=== PATIENT | female | born 1960 | race Caucasian/White ===

== ENCOUNTER 2017-07-22 17:17 | Observation (INO) ==
[2017-07-22] MEDS ORDERED: Acetaminophen 325 MG TABLET PO PRN (22:02)
[2017-07-22] MEDS ORDERED: Naloxone 0.4 MG/ML INJ IVP PRN (22:02)
[2017-07-22 22:56] LABS: Basophils % 0.5 %; Eosinophils # 0.2 K/mcL (0.0-0.6); Eosinophils % 2.1 %; Hematocrit 32.7 % (35.3-44.9); Immature Granulocytes % 0.3 % (0-4); Lymphocytes # 2.1 K/mcL (0.6-4.6); Lymphocytes % 23.9 %; Mean Corpuscular HGB Conc 30.6 g/dL (31.6-35.5); Mean Corpuscular Volume 81.8 fL (83.0-100.0); Mean Platelet Volume 10.9 fL (9.4-12.4); Monocytes # 0.6 K/mcL (0.0-1.3); Monocytes % 6.8 %; Neutrophils # 5.9 K/mcL (1.6-8.9); Platelet Count 190 K/mcL (140-400); Red Cell Distribution Width 18.6 % (11.5-14.5); Segmented Neutrophils % 66.4 %
[2017-07-22] MEDS ORDERED: Vancomycin 2,000 MG in D5% in Water 250 ML IVPB SCH (23:00)
[2017-07-22 23:11] LABS: Alanine Aminotransferase 14 Units/L (7-52); Albumin 3.4 g/dL (3.5-5.7); Alkaline Phosphatase 115 Units/L (34-104); Aspartate Amino Transferase 20 Units/L (13-39); BUN/Creatinine Ratio 17 (6-26); Bilirubin,Total 0.5 mg/dL (0.3-1.0); Blood Urea Nitrogen 18 mg/dL (6-20); Calcium 8.6 mg/dL (8.6-10.3); Carbon Dioxide 28 mEq/L (23-29); Chloride 102 mEq/L (98-107); Globulin 3.4 g/dL (2.4-3.5); Glucose 106 mg/dL (70-105); Osmolality,Calculated 290 (280-300); Potassium 3.8 mEq/L (3.5-5.1); Sodium 139 mEq/L (136-145); Total Protein 6.8 g/dL (6.4-8.9); eGFR For African Americans > 60 (> 60); eGFR For Non-African Americans 54 (> 60)
[2017-07-22 23:39] LABS: INR 2.3; Prothrombin Time 24.7 Seconds (9.4-12.1)
[2017-07-23] MEDS ORDERED: Vancomycin 1,750 MG in D5% in Water 500 ML IVPB ONE (00:01)
--- NOTE | 2017-07-23 01:31 | Internal Med History&Physical ---
Date of Encounter: 07/23/17 Time of Encounter: 01:30 Assessment and Plan (1) Fall Current visit: Yes Status: Acute Possibly syncope. Weakness may be related to cellulitis. - Treat for cellulitis and see if weakness improves - CT negative for intracranial abnormalities - Consider TTE if symptoms persist - Monitor on telemetry Qualifiers: Encounter type: initial encounter Qualified Code(s): W19.XXXA - Unspecified fall, initial encounter (2) Cellulitis Current visit: No Status: Chronic Located on pannus - was receiving vancomycin but this was reportedly discontinued when she pulled out her PICC line several days ago. Will restart vancomycin, pharmacy to dose. Qualifiers: Site of cellulitis: extremity Site of cellulitis of extremity: lower extremity Laterality: unspecified laterality Qualified Code(s): L03.119 - Cellulitis of unspecified part of limb (3) Venous stasis dermatitis Current visit: No Status: Acute Chronic. Qualifiers: Laterality: bilateral Qualified Code(s): I87.2 - Venous insufficiency ( chronic) (peripheral) (4) CHF (congestive heart failure) Current visit: No Status: Chronic Currently appears euvolemic. Continue home meds Qualifiers: Congestive heart failure type: unspecified Congestive heart failure chronicity: unspecified Qualified Code(s): I50.9 - Heart failure, unspecified (5) History of coronary artery disease Current visit: No Status: Acute Patient complains of atypical chest pain which sounds more consistent with musculoskeletal pain from coughing. Will check troponins. (6) History of obstructive sleep apnea Current visit: No Status: Chronic Continue home BIPAP Internal Medicine - H&P: HPI Chief complaint: Fall, cellulitis Admitted From: Emergency Dept Plans for Post Hospital Care: Home History of present illness: Ms. Evans is a 57 year old female with history of CAD and s/p CABG and AVR, CVA, seizure disorder, morbid obesity, diabetes, and TRUNG who presented to the ED today after she had a fall at her alf. She states that she has had trouble standing for the past week and has been very weak. She fell today and thinks she might have passed out. She thinks she lost consciousness. She states that she has been treated for cellulitis on her pannus and was supposed to be taking vancomycin IV but she self removed her PICC line on 07/19/2017. I asked why she removed it and she stated that she knew how. She does not think she was done with the course of antibiotics she was supposed to take. She has noticed that the right side of her pannus has become more red, warm and tender over the past few days. She does not know if she has had a fever. She has had a cough and chest pain associated with coughing. She denies chest pain currently. Past Med Surg Social Fam HX - Past Medical History Medical history: asthma, CHF, COPD, CVA, DVT, hyperlipidemia, myocardial infarction, seizures, TIA Psychiatric history: anxiety, depression, PTSD, other - Past Surgical History Surgical History: , other - Social History Smoking Status: Never smoker Smokeless Tobacco Status: No Alcohol use: none Drug use: none - Family History Father Living Status: Still Living Mother Living Status: Cause of : Cancer Hx Family Cancer: Yes Internal Medicine - H&P: Meds Quetiapine Fumarate [Seroquel] 450 mg PO HS 02/16/15 [History] Zolpidem [Ambien] 5 mg PO HS 02/16/15 [History] Atorvastatin Calcium [Lipitor] 20 mg PO DAILY 06/10/15 [History] Budesonide/Formoterol 160/4.5 [Symbicort 160/4.5] 2 aerosol IN BID 06/10/15 [ History] Carvedilol [Coreg] 3.125 mg PO BIDWM 06/10/15 [History] Cholecalciferol (Vitamin D3) [Vitamin D3] 5,000 unit PO DAILY 06/10/15 [History] Clopidogrel [Plavix] 75 mg PO DAILY 06/10/15 [History] Cyanocobalamin (B-12) [Vitamin B12] 0 mcg IM QMONTH 06/10/15 [History] Daptomycin [Cubicin] 1,038 mg IVPB Q24H 06/10/15 [History] Diclofenac Sodium [Voltaren] 1 appl TP QID 06/10/15 [History] Duloxetine HCl [Cymbalta] 60 mg PO BID 06/10/15 [History] Ertapenem [INVanz] 2,000 mg IVPB DAILY 06/10/15 [History] Ipratropium/Albuterol Neb [Duoneb] 3 ml IH Q8HR 06/10/15 [History] LevETIRAcetam [Keppra] 500 mg PO BID 06/10/15 [History] Melatonin 3 mg PO HS 06/10/15 [History] Sennosides [Senna] 8.8 mg PO BID 06/10/15 [History] Trazodone HCl [TraZODone] 50 mg PO 06/10/15 [History] Docusate [Colace] 100 mg PO BID capsule 08/17/15 [Rx] OxyCODONE/APAP 10/325 [Percocet 10/325 MG] 1 each PO Q8HR PRN #20 tablet [Rx] Ascorbate Calcium [Vitamin C] 500 mg PO DAILY 07/22/17 [History] Baclofen [Lioresal] 10 mg PO TID 07/22/17 [History] Ferrous Sulfate 325 mg PO DAILY 07/22/17 [History] Furosemide [Lasix] 60 mg PO DAILY 07/22/17 [History] Multivit-Min/FA/Lycopen/Lutein [Adults 50+ Multivitamin Tablet] 1 each PO DAILY 07/22/17 [History] Omeprazole [PriLOSEC] 20 mg PO DAILY 07/22/17 [History] Pentoxifylline [TRENtal] 400 mg PO BID 07/22/17 [History] OXcarbazepine [Trileptal] 300 mg PO BID 07/23/17 [History] Venlafaxine HCl [Venlafaxine HCl ER] 75 mg PO BID 07/23/17 [History] 3 Allergy/AdvReac Type Severity Reaction Status Date / Time aspirin Allergy Unknown See Verified 01/31/15 06:22 Comments diazepam [From Valium] Allergy Unknown See Verified 01/31/15 06:22 Comments divalproex sodium Allergy Unknown See Verified 01/31/15 06:22 [From Depakote] Comments prochlorperazine Allergy Unknown See Verified 01/31/15 06:22 [From Compazine] Comments All Systems PM: A 10-system review of systems was performed and is negative for pertinent findings except as documented above in the HPI. - Constitutional Vitals: Temp Pulse Resp BP Pulse Ox 98.8 F 101 17 108/69 93 07/22/17 23:08 07/22/17 23:08 07/22/17 23:08 07/22/17 23:08 07/22/17 23:08 General appearance: Present: A&O X 3 - Head Head exam: Present: atraumatic - Eye Eye exam: Present: EOMI, sclera anicteric - ENT ENT exam: Present: mucous membranes moist - Neck Neck exam general surgery: Present: supple - Respiratory Respiratory exam: Present: CTAB - Cardiovascular Cardiovascular exam: Present: RRR. Absent: diastolic murmur, systolic murmur - GI/Abdominal GI/Abdominal exam: Present: soft. Absent: guarding, rebound Additional comments: Right anterior pannus with mild erythema and tenderness to palpation. - Extremities Exam Additional comments: Bilateral changes secondary to chronic venous stasis. Numerous superficial ulcerations. - Neurological Exam Neurological exam: Present: no focal deficits - Skin Skin exam: Absent: cyanosis Internal Med - H&P Results - Labs CBC & Chem 7: 07/22/17 22:48 07/22/17 22:48 Labs: Short CBC 07/22/17 Range/Units 22:48 WBC 8.9 (4.3-11.1) K/mcL Hgb 10.0 L (11.5-15.4) g/dL Hct 32.7 L (35.3-44.9) % Plt Count 190 (140-400) K/mcL Neutrophils # 5.9 (1.6-8.9) K/mcL BMP 07/22/17 22:48 Sodium 139 Potassium 3.8 Chloride 102 Carbon Dioxide 28 BUN 18 Creatinine 1.04 Glucose 106 H Calcium 8.6 Cardiac Enzymes 07/22/17 Range/Units 22:48 Troponin I < 0.03 (< 0.04) ng/mL Liver Function 07/22/17 Range/Units 22:48 Total Bilirubin 0.5 (0.3-1.0) mg/dL AST 20 (13-39) Units/L ALT 14 (7-52) Units/L Alkaline Phosphatase 115 H (34-104) Units/L Albumin 3.4 L (3.5-5.7) g/dL
[2017-07-23] MEDS ORDERED: Dextromethorphan Polistrx(12h) 30 MG/5 ML UDC PO PRN ×2 (05:00→05:15)
[2017-07-23] MEDS ORDERED: *HR* HYDROcodone/Acet 5/325 mg TABLET PO PRN ×2 (05:00)
[2017-07-23] MEDS ORDERED: GuaiFENesin Liq 200 MG/10 ML UDC PO PRN (05:00)
[2017-07-23] MEDS ORDERED: Ipratropium/Albuterol Neb 3 ML IH PRN (05:00)
[2017-07-23] MEDS: Venlafaxine XR (24 HR) 75 MG CAP.ER.24H PO SCH ×2 (09:26→20:55)
[2017-07-23] MEDS: Multivit/Ca/Min/Fe/FA 1 TAB TABLET PO SCH (09:27)
[2017-07-23] MEDS: Furosemide 20 MG TABLET PO SCH (09:27)
[2017-07-23] MEDS: Ascorbic Acid 500 MG TABLET PO SCH (09:28)
[2017-07-23] MEDS: levETIRAcetam 250 MG TABLET PO SCH ×2 (09:28→20:55)
[2017-07-23] MEDS: OXcarbazepine 150 MG TABLET PO SCH ×2 (09:28→20:55)
[2017-07-23] MEDS: Baclofen 10 MG TABLET PO SCH ×3 (09:28→20:55)
[2017-07-23] MEDS: Vancomycin 1,500 MG in D5% in Water 250 ML IVPB SCH ×2 (12:23→23:49)
[2017-07-23] MEDS: Insulin LISPRO 300 UNITS/3 ML VIAL SQ SCH ×3 (12:23→20:51)
--- NOTE | 2017-07-23 14:24 | Internal Med Progress Note ---
Date of Encounter: 07/23/17 Time of Encounter: 13:10 - Assessment and plan (1) CHF (congestive heart failure) Current Visit: Yes Status: Chronic Assessment and plan: Chronic. Last echo in January,. LV size and wall thickness appeared normal by history, there is a mechanical aortic valve. Hickman that were actually visualized showed normal wall motion. Echo and carotids will be ordered for syncopal workup. Continue telemetry and home medications. Qualifiers: Congestive heart failure type: unspecified Congestive heart failure chronicity: unspecified Qualified Code(s): I50.9 - Heart failure, unspecified (2) CAD (coronary artery disease) Current Visit: Yes Status: Chronic Assessment and plan: Patient denies chest pain. Prior history of CAD. Continue home medications. Continue beta fausto, Coumadin. Patient is allergic to aspirin. Qualifiers: Coronary Disease-Associated Artery/Lesion type: [place] artery [place] vs. transplanted heart: [place] heart Associated angina: angina presence unspecified Qualified Code(s): I25.10 - Atherosclerotic heart disease of [place] coronary artery without angina pectoris (3) Morbid obesity with BMI of 70 and over, adult Current Visit: Yes Status: Chronic Assessment and plan: Chronic. Lifestyle modifications are needed. (4) TRUNG (obstructive sleep apnea) Current Visit: Yes Status: Chronic Assessment and plan: Continue BiPAP. (5) Fall Current Visit: Yes Status: Acute Assessment and plan: Patient presented to the emergency room status post fall at [facility] prior to arrival. Patient reports that over the last week she has been having trouble standing and has been very weak. She fell prior to arrival thinks that she may have had a syncopal episode and lost consciousness. Patient with obvious weakness on exam, unsure if it is related to cellulitis or obesity and physical deconditioning. BMI is 70.4. She denies any chest pain prior to fall. Repeats that she is unsure what caused the fall. No obvious injuries noted on exam. Patient sent from [facility], head CT was negative. We will continue to treat pannus cellulitis with IV vancomycin to assess if this resolves weakness. PT/OT consultations. Patient is already in a half-way. Qualifiers: Encounter type: initial encounter Qualified Code(s): W19.XXXA - Unspecified fall, initial encounter (6) DVT prophylaxis Current Visit: No Status: Acute Assessment and plan: Chair twice a day. Heparin subcutaneous 3 times daily. (7) Venous stasis dermatitis Current Visit: No Status: Acute Assessment and plan: Chronic. May dress legs to prevent drainage from seeping. Qualifiers: Laterality: bilateral Qualified Code(s): I87.2 - Venous insufficiency ( chronic) (peripheral) - Time Spent With Patient less than 15 minutes - Subjective Interval history: Pt was seen and assessed at bedside at 1310. Patient seems almost unable to answer questions due to frequent questions asking for IV pain medications, specifically Phenergan, Dilaudid, and morphine. She reports pruritus to entire body and ask for IV Benadryl. I offered her hydroxyzine, which she agreed. She denies any chest pain, shortness of breath. She denies abdominal pain. She is sitting up on the side of the bed eating fried chicken and mashed potatoes. Patient reports serous fluid seeping from bilateral lower extremities , unchanged from normal at home. - Constitutional Vitals: Temp Pulse Resp BP Pulse Ox 98.5 F 80 17 95/59 99 07/23/17 13:25 07/23/17 13:25 07/23/17 13:25 07/23/17 13:25 07/23/17 13:25 General appearance: Present: cooperative, A&O X 3, morbidly obese, pleasant, no acute distress, answers questions appropriately - Head Head exam: Present: atraumatic, normal inspection, normocephalic - Eye Eye exam: Present: conjuntiva pink, sclera anicteric - Neck Neck exam general surgery: Present: supple, trachea midline. Absent: lymphadenopathy, tenderness - Respiratory Respiratory exam: Present: chest wall tenderness, CTAB. Absent: accessory muscle use, rales, rhonchi, wheezes - Cardiovascular Cardiovascular exam: Present: RRR, +S1, +S2. Absent: diastolic murmur, gallop, rubs, systolic murmur - GI/Abdominal GI/Abdominal exam: Present: normal bowel sounds, soft, no peritoneal signs. Absent: distended, hepatomegaly, tenderness - Extremities Exam Extremities exam: Present: normal capillary refill, warm, radial pulses palpable and symmetrical. Absent: calf tenderness, cyanotic, pedal edema, tenderness - Neurological Exam Neurological exam: Present: alert, oriented X3, no focal deficits. Absent: facial droop, speech deficit - Skin Skin exam: Present: dry, intact Internal Medicine: Result - Labs CBC & Chem 7: 07/22/17 22:48 07/22/17 22:48 Labs: Short CBC 07/22/17 Range/Units 22:48 WBC 8.9 (4.3-11.1) K/mcL Hgb 10.0 L (11.5-15.4) g/dL Hct 32.7 L (35.3-44.9) % Plt Count 190 (140-400) K/mcL Neutrophils # 5.9 (1.6-8.9) K/mcL BMP 07/22/17 22:48 Sodium 139 Potassium 3.8 Chloride 102 Carbon Dioxide 28 BUN 18 Creatinine 1.04 Glucose 106 H Calcium 8.6 Cardiac Enzymes 07/22/17 07/23/17 07/23/17 Range/Units 22:48 05:16 12:13 Troponin I < 0.03 < 0.03 < 0.03 (< 0.04) ng/mL Liver Function 07/22/17 Range/Units 22:48 Total Bilirubin 0.5 (0.3-1.0) mg/dL AST 20 (13-39) Units/L ALT 14 (7-52) Units/L Alkaline Phosphatase 115 H (34-104) Units/L Albumin 3.4 L (3.5-5.7) g/dL - ABG Interpretation ABG results: PT/INR, D-dimer PT 24.7 Seconds (9.4-12.1) H 07/22/17 23:17 Consult Discharge Plan - Plan Referrals: NONE,PCP [Primary Care Provider] -
[2017-07-23] MEDS: *HR* Heparin 5,000 UNIT/ML VIAL SQ SCH ×2 (15:23→21:00)
[2017-07-23] MEDS: *HR* Warfarin 4 MG TABLET PO SCH (17:59)
[2017-07-23] MEDS: Melatonin 3 MG TABLET PO SCH (20:55)
[2017-07-23] MEDS: traZODone 50 MG TABLET PO SCH (20:55)
[2017-07-24 05:08] LABS: BUN/Creatinine Ratio 16 (6-26); Basophils % 0.5 %; Blood Urea Nitrogen 16 mg/dL (6-20); Calcium 8.4 mg/dL (8.6-10.3); Carbon Dioxide 30 mEq/L (23-29); Chloride 104 mEq/L (98-107); Eosinophils # 0.2 K/mcL (0.0-0.6); Eosinophils % 2.8 %; Glucose 122 mg/dL (70-105); Hematocrit 30.5 % (35.3-44.9); Immature Granulocytes % 0.2 % (0-4); Lymphocytes # 1.6 K/mcL (0.6-4.6); Lymphocytes % 27.1 %; Mean Corpuscular HGB Conc 29.5 g/dL (31.6-35.5); Mean Corpuscular Hemoglobin 24.6 pg (28.0-33.3); Mean Corpuscular Volume 83.3 fL (83.0-100.0); Mean Platelet Volume 11.1 fL (9.4-12.4); Monocytes # 0.4 K/mcL (0.0-1.3); Monocytes % 7.3 %; Neutrophils # 3.6 K/mcL (1.6-8.9); Osmolality,Calculated 290 (280-300); Platelet Count 177 K/mcL (140-400); Potassium 3.8 mEq/L (3.5-5.1); Red Blood Count 3.66 M/mcL (3.82-4.97); Red Cell Distribution Width 18.8 % (11.5-14.5); Segmented Neutrophils % 62.1 %; Sodium 139 mEq/L (136-145); eGFR For African Americans > 60 (> 60); eGFR For Non-African Americans 57 (> 60)
[2017-07-24] MEDS: *HR* Heparin 5,000 UNIT/ML VIAL SQ SCH ×3 (05:48→21:30)
[2017-07-24] MEDS ORDERED: hydrOXYzine pamoate 25 MG CAPSULE PO PRN (07:49)
[2017-07-24] MEDS: Insulin LISPRO 300 UNITS/3 ML VIAL SQ SCH ×4 (07:53→21:26)
[2017-07-24] MEDS: Ascorbic Acid 500 MG TABLET PO SCH (09:25)
[2017-07-24] MEDS: Baclofen 10 MG TABLET PO SCH ×3 (09:25→21:26)
[2017-07-24] MEDS: Venlafaxine XR (24 HR) 75 MG CAP.ER.24H PO SCH ×2 (09:25→21:25)
[2017-07-24] MEDS: levETIRAcetam 250 MG TABLET PO SCH ×2 (09:25→21:25)
[2017-07-24] MEDS: Furosemide 20 MG TABLET PO SCH (09:25)
[2017-07-24] MEDS: OXcarbazepine 150 MG TABLET PO SCH ×2 (09:26→21:26)
[2017-07-24] MEDS: Multivit/Ca/Min/Fe/FA 1 TAB TABLET PO SCH (09:26)
[2017-07-24 09:46] LABS: % Iron Saturation 12 % (15-50); Iron 36 mcg/dL (50-170); Transferrin 219 mg/dL (203-362)
[2017-07-24] MEDS ORDERED: Perflutren Lipid Microsphere 1.3 ML in 0.9 % Sodium Chloride 8.7 ML IVP ONE (09:55)
[2017-07-24] MEDS: Vancomycin 1,500 MG in D5% in Water 250 ML IVPB SCH (12:03)
--- NOTE | 2017-07-24 15:14 | Internal Med Progress Note ---
Date of Encounter: 07/24/17 Time of Encounter: 09:15 - Assessment and plan (1) CHF (congestive heart failure) Current Visit: Yes Status: Chronic Assessment and plan: Chronic. Last echo in January,. LV size and wall thickness appeared normal by history, there is a mechanical aortic valve. Hickman that were actually visualized showed normal wall motion. Echo and carotids were ordered for syncopal workup, pt refused testing. Continue telemetry and home medications. Pt is intermittently refusing some medications and has refused telemetry. WE have encouraged her to complete testing and wear tele monitor, pt refuses. Qualifiers: Congestive heart failure type: unspecified Congestive heart failure chronicity: unspecified Qualified Code(s): I50.9 - Heart failure, unspecified (2) CAD (coronary artery disease) Current Visit: Yes Status: Chronic Assessment and plan: Patient denies chest pain. Prior history of CAD. Continue home medications. Continue beta fausto, Coumadin. Patient is allergic to aspirin. Patient has refused telemetry and a further testing. Qualifiers: Coronary Disease-Associated Artery/Lesion type: [place] artery [place] vs. transplanted heart: [place] heart Associated angina: angina presence unspecified Qualified Code(s): I25.10 - Atherosclerotic heart disease of [place] coronary artery without angina pectoris (3) Morbid obesity with BMI of 70 and over, adult Current Visit: Yes Status: Chronic Assessment and plan: Chronic. Lifestyle modifications are needed. Continue low sodium and diabetic, cardiac diet. (4) TRUNG (obstructive sleep apnea) Current Visit: Yes Status: Chronic Assessment and plan: Continue BiPAP. (5) Fall Current Visit: Yes Status: Acute Assessment and plan: PT/OT consultations. Patient is already in a [facility]. Pt requires assistance for mobility. Up to chair with assistance. Qualifiers: Encounter type: initial encounter Qualified Code(s): W19.XXXA - Unspecified fall, initial encounter (6) DVT prophylaxis Current Visit: No Status: Acute Assessment and plan: Chair twice a day. Heparin subcutaneous 3 times daily. (7) Venous stasis dermatitis Current Visit: No Status: Acute Assessment and plan: Chronic. May dress legs to prevent drainage from seeping. Wound consultation ordered. Qualifiers: Laterality: bilateral Qualified Code(s): I87.2 - Venous insufficiency ( chronic) (peripheral) - Time Spent With Patient less than 15 minutes - Subjective Interval history: Pt was seen and assessed at bedside at 0915. Patient has requested that a PICC line be inserted that I need to write a prescription for vancomycin for her to go to the [facility]. She states that she has not done here and is ready to go back to the [facility]. She is a resident at [facility] and [place]. Patient has refused all care including echocardiogram, labs, medications, and telemetry. She states her doctor can order all of this testing that she does not need to have it done. We, of course, have tried to discuss with patient necessity for complete evaluation, patient remains resistant. Patient is waiting on prior authorization from insurance to return to [facility]. She denies chest pain or shortness of breath, no dizziness or nausea vomiting diarrhea. She denies abdominal pain. - Constitutional Vitals: Temp Pulse Resp BP Pulse Ox 97.7 F 77 16 126/75 94 07/24/17 11:16 07/24/17 11:16 07/24/17 11:16 07/24/17 11:16 07/24/17 11:16 General appearance: Present: cooperative, A&O X 3, morbidly obese, pleasant, no acute distress, answers questions appropriately - Head Head exam: Present: atraumatic, normal inspection, normocephalic - Eye Eye exam: Present: normal appearance, conjuntiva pink, sclera anicteric - Neck Neck exam general surgery: Present: supple, trachea midline. Absent: lymphadenopathy, tenderness - Respiratory Respiratory exam: Present: CTAB. Absent: accessory muscle use, chest wall tenderness, rales, respiratory distress, rhonchi, wheezes - Cardiovascular Cardiovascular exam: Present: RRR, +S1, +S2. Absent: diastolic murmur, gallop, rubs, systolic murmur - GI/Abdominal GI/Abdominal exam: Present: normal bowel sounds, soft. Absent: distended, hepatomegaly, tenderness - Extremities Exam Extremities exam: Present: tenderness, warm, radial pulses palpable and symmetrical. Absent: calf tenderness, cyanotic, normal capillary refill, normal inspection, pedal edema - Neurological Exam Neurological exam: Present: alert, oriented X3, no focal deficits. Absent: facial droop, speech deficit - Skin Skin exam: Present: dry, intact, normal color, warm. Absent: rash Internal Medicine: Result - Labs CBC & Chem 7: 07/24/17 04:19 07/24/17 04:19 Labs: Short CBC 07/24/17 Range/Units 04:19 WBC 5.7 (4.3-11.1) K/mcL Hgb 9.0 L (11.5-15.4) g/dL Hct 30.5 L (35.3-44.9) % Plt Count 177 (140-400) K/mcL Neutrophils # 3.6 (1.6-8.9) K/mcL BMP 07/24/17 04:19 Sodium 139 Potassium 3.8 Chloride 104 Carbon Dioxide 30 H BUN 16 Creatinine 0.99 Glucose 122 H Calcium 8.4 L - ABG Interpretation ABG results: PT/INR, D-dimer PT 24.7 Seconds (9.4-12.1) H 07/22/17 23:17 Consult Discharge Plan - Plan Referrals: NONE,PCP [Primary Care Provider] -
[2017-07-24 16:07] LABS: Bilirubin,Urine Negative (Negative); Blood,Urine Trace (Negative); Clarity,Urine Clear (Clear); Color,Urine Yellow (Yellow); Glucose,Urine (UA) Normal (Normal); Ketones,Urine Negative (Negative); Leukocyte Esterase,Urine Negative (Negative); Nitrite,Urine Negative (Negative); PH,Urine 6.5 pH Units (5.0-8.0); Protein,Urine Negative (Neg-Trace); Specific Gravity,Urine 1.014 (1.010-1.025); Urobilinogen,Urine Normal (Normal)
[2017-07-24 16:09] LABS: Bacteria,Urine None Seen per hpf (None-Few); Hyaline Casts,Urine None Seen per lpf (None-Few); Squamous Epithelial Cell,Urine Moderate per lpf (None-Few); WBC,Urine 0-3 per hpf (0-3)
[2017-07-24] MEDS ORDERED: Warfarin perPT PO PRN (18:00)
[2017-07-24] MEDS: *HR* Warfarin 4 MG TABLET PO SCH (18:33)
[2017-07-24] MEDS: Melatonin 3 MG TABLET PO SCH (21:26)
[2017-07-24] MEDS: traZODone 50 MG TABLET PO SCH (21:26)
[2017-07-25] MEDS: Vancomycin 1,500 MG in D5% in Water 250 ML IVPB SCH (00:37)
[2017-07-25] MEDS: *HR* Heparin 5,000 UNIT/ML VIAL SQ SCH ×2 (05:08→13:53)
[2017-07-25] MEDS: Insulin LISPRO 300 UNITS/3 ML VIAL SQ SCH ×2 (09:05→11:12)
[2017-07-25] MEDS: Baclofen 10 MG TABLET PO SCH ×2 (10:03→13:53)
[2017-07-25] MEDS: Venlafaxine XR (24 HR) 75 MG CAP.ER.24H PO SCH (10:03)
[2017-07-25] MEDS: OXcarbazepine 150 MG TABLET PO SCH (10:03)
[2017-07-25] MEDS: Furosemide 20 MG TABLET PO SCH (10:03)
[2017-07-25] MEDS: Ascorbic Acid 500 MG TABLET PO SCH (10:04)
[2017-07-25] MEDS: Multivit/Ca/Min/Fe/FA 1 TAB TABLET PO SCH (10:04)
[2017-07-25] MEDS: levETIRAcetam 250 MG TABLET PO SCH (10:04)
--- NOTE | 2017-07-25 15:01 | Discharge Summary ---
Date of Encounter: 07/25/17 Time of Encounter: 15:10 - Discharge Diagnosis (1) Laceration of head Priority: Primary Status: Acute Comments: presented to OSH ER after falling at ECF. OSH head CT non-acute. Scalp laceration stapled on 07/23/17 per outside hospital ED. 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 On Coumadin. Last INR 2.3 on 07/22/17 as patient is refusing blood draws. Discussed with pharmacy and will discharge on home dose of 4 mg. INR can be monitored at ECF (3) Abdominal hernia Priority: Secondary Status: Chronic Comments: Secondary to morbid obesity. Outside hospital ABD CT showed ventral wall hernia containing a small loop of small bowel and abdominal fat, no acute bowel obstruction or ileus. Lifestyle/dietary modifications encouraged but unlikely. Defer to ECF PCP for follow-up Qualifiers: Hernia type: ventral Obstruction and gangrene presence: without obstruction or gangrene Qualified Code(s): K43.9 - Ventral hernia without obstruction or gangrene (4) Abdominal pannus Priority: Secondary Status: Chronic Comments: hx recurrent abdominal pannus cellulitis quiring IV ATB. Patient an ECF staff report recently completed a round of IV vancomycin and 06/2017. Outside hospital ABD CT without evidence of free air free fluid or loculated fluid collection in the abdomen. No local signs of infection. Afebrile, no elevated VBC. No indication for ATB at this time. 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 Recently completed a round of IV ATB for lower extremity cellulitis. Lower extremities with chronic venous changes but no signs of infection at this time. No indication for ATB. Stop IV Vanco. Continue local wound care per ECF Qualifiers: Laterality: bilateral Qualified Code(s): I87.2 - Venous insufficiency ( chronic) (peripheral) (6) CAD (coronary artery disease) Priority: Secondary Status: Chronic Comments: per hx. Denies chest pain. Continue home BB, Coumadin, statin Qualifiers: Coronary Disease-Associated Artery/Lesion type: [place] artery [place] vs. transplanted heart: [place] heart Associated angina: angina presence unspecified Qualified Code(s): I25.10 - Atherosclerotic heart disease of [place] coronary artery without angina pectoris (7) Morbid obesity with BMI of 60.0-69.9, adult Priority: Secondary Status: Chronic (8) Hx of aortic valve replacement, mechanical Priority: Secondary Status: Chronic Comments: per hx. 01/2015 with evidence of mechanical aortic valve. A repeat echocardiogram was ordered however patient refused. Last INR 2.3 on 07/22/17. Continue home Coumadin. INR can be monitored at [facility] (9) Personality disorder Priority: Secondary Status: Chronic Comments: Along with anxiety and mood disorder per chart review. Suspect this is contributing to noncompliance. Continue home medication regimen. - Discharge Medications Prescriptions: HYDROcodone/Acet 5/325 mg [[place] 5-325 mg] 1 tab PO Q6H PRN #28 tablet PRN Reason: Moderate Pain HYDROcodone/Acet 5/325 mg [[place] 5-325 mg] 2 tab PO Q6H PRN #28 tablet PRN Reason: Pain Home Medications: Atorvastatin Calcium [Lipitor] 40 mg PO HS 06/10/15 [History] Carvedilol [Coreg] 3.125 mg PO BID 06/10/15 [History] Ipratropium/Albuterol Neb [Duoneb] 2.5 mg IH Q6HR PRN 06/10/15 [History] LevETIRAcetam [Keppra] 500 mg PO BID 06/10/15 [History] Melatonin 6 mg PO HS 06/10/15 [History] Sennosides [Senna] 8.6 mg PO HS 06/10/15 [History] Trazodone HCl [TraZODone] 50 mg PO HS 06/10/15 [History] Docusate [Colace] 100 mg PO BID capsule 08/17/15 [Rx] Ascorbate Calcium [Vitamin C] 500 mg PO DAILY 07/22/17 [History] Baclofen [Lioresal] 10 mg PO TID 07/22/17 [History] Ferrous Sulfate 325 mg PO DAILY 07/22/17 [History] Furosemide [Lasix] 60 mg PO DAILY 07/22/17 [History] Multivit-Min/FA/Lycopen/Lutein [Adults 50+ Multivitamin Tablet] 1 tab PO DAILY 07/22/17 [History] Omeprazole [PriLOSEC] 20 mg PO DAILY 07/22/17 [History] Pentoxifylline [TRENtal] 400 mg PO BID 07/22/17 [History] Bisacodyl [Woman's Laxative] 5 mg PO DAILY PRN 07/23/17 [History] Cyclobenzaprine [Flexeril] 10 mg PO TID PRN 07/23/17 [History] Dextromethorphan Polistirex [Delsym] 30 mg PO Q4HR PRN 07/23/17 [History] DiphenhydraMINE [Benadryl] 25 mg PO Q6HR PRN 07/23/17 [History] Guaifenesin [Cough Syrup] 200 mg PO Q4H PRN 07/23/17 [History] Guaifenesin [Mucinex] 600 mg PO Q12HR PRN 07/23/17 [History] HYDROcodone/Acet 5/325 mg [[place] 5-325 mg] 1 tab PO Q6H PRN 07/23/17 [History] OXcarbazepine [Trileptal] 300 mg PO BID 07/23/17 [History] Ondansetron HCl [Zofran] 4 mg PO Q4H PRN 07/23/17 [History] Venlafaxine HCl [Venlafaxine HCl ER] 37.5 mg PO BID 07/23/17 [History] Warfarin [Coumadin] 4 mg PO HS 07/23/17 [History] HYDROcodone/Acet 5/325 mg [[place] 5-325 mg] 1 tab PO Q6H PRN #28 tablet 07/25/17 [Rx] HYDROcodone/Acet 5/325 mg [[place] 5-325 mg] 2 tab PO Q6H PRN #28 tablet 07/25/17 [Rx] Allergies/Adverse Reactions: 3 Allergy/AdvReac Type Severity Reaction Status Date / Time aspirin Allergy Unknown See Verified 01/31/15 06:22 Comments diazepam [From Valium] Allergy Unknown See Verified 01/31/15 06:22 Comments divalproex sodium Allergy Unknown See Verified 01/31/15 06:22 [From Depakote] Comments prochlorperazine Allergy Unknown See Verified 01/31/15 06:22 [From Compazine] Comments Date of admission: 07/22/17 18:54 Primary care physician: PCP NONE Consults: 07/23/17 14:53 Consult to Physical Therapy [CONS] Routine Comment: Evaluate, develop and implement POC Reason for Consult: Weakness. Evaluation please. 07/24/17 15:03 Consult to Occupational Therapy [CONS] Routine Comment: Evaluate, develop and implement POC Reason for Consult: Evaluate 07/24/17 15:04 Consult to Physical Therapy [CONS] Routine Comment: Evaluate, develop and implement POC Reason for Consult: Evaluate 07/24/17 15:16 Consult to Wound Care [CONS] Routine Reason for Consult: Evaluation for venous stasis dermatitis to BLE, dressings Call Completed: No 07/24/17 18:55 Consult to PICC team [Consult to Invasive Line Access Team] [CONS] Routine Reason for Consult: limited vascular access Line Type: PICC 07/25/17 14:18 Consult to Shuttle Buggy Operator [CONS] Routine Reason for SW Consult: discharge Discharging clinician: Radha Talbot Anticipated date of discharge: 07/25/17 - Patient Status Disposition: Transfer SNF Condition: Fair Functional capacity at discharge: uses cane/walker Overall status at discharge: patient is back to baseline - Discharge Instructions Follow Up With: NONE,PCP [Primary Care Provider] - Additional Instructions: Remove scalps miguelina in 7-10 days - Diet and Activity Activity: as per physical therapy Diet: diabetic diet, low fat, low cholesterol Interval History: Seen and examined at bedside, patient is 78. Information obtained from chart review and patient report. Sitting up in chair at bedside, states she is upset with staff here and was discharged back to [facility] today. Patient reports being tired the day she was transferred to outside hospital and thus the reason for her fall. Says she was receiving IV vancomycin for lower extremity cellulitis however her PICC line apparently became clogged and the physician at [facility] did not want to use TPA therefore the patient removed the pick herself. She has been noncompliant with care while here at [facility], has been argumentative and combative with staff. She is refusing medication, lab draws and, telemetry, echo and refusing to work with therapy. Patient states she feels better and wants to discharge back to ECF today. She was coronary from ECF at bedside and patient is approved to return Hospital course: Ms. Evans is a 57 year old female - Time Spent with Patient Total time spent providing and/or coordinating discharge services: - Constitutional Vitals: Temp Pulse Resp BP Pulse Ox 98.4 F 107 16 107/63 95 07/25/17 11:06 07/25/17 11:06 07/25/17 11:06 07/25/17 11:06 07/25/17 11:06 General appearance: Present: cooperative, A&O X 3, morbidly obese, pleasant, no acute distress, answers questions appropriately - Head Head exam: Present: atraumatic, normocephalic - Eye Eye exam: Present: PERRL, conjuntiva pink, sclera anicteric Pupils: Present: PERRL - Neck Neck exam general surgery: Present: supple, trachea midline. Absent: lymphadenopathy - Respiratory Respiratory exam: Present: CTAB. Absent: accessory muscle use, rales, rhonchi, wheezes - Cardiovascular Cardiovascular exam: Present: RRR, +S1, +S2. Absent: diastolic murmur, gallop, rubs, systolic murmur - GI/Abdominal GI/Abdominal exam: Present: normal bowel sounds, soft, no peritoneal signs. Absent: distended, tenderness - Extremities Exam Extremities exam: Present: warm, radial pulses palpable and symmetrical. Absent : calf tenderness, cyanotic, pedal edema - Neurological Exam Neurological exam: Present: CN II-XII intact, oriented X3, no focal deficits. Absent: pronater drift, facial droop, speech deficit - Skin Skin exam: Present: dry Additional comments: Bilateral lower extremities with purplish hue, dependent rubor and seeping edema. No erythema or warmth.
[2017-07-25 15:40] VITALS: BP 134/84
--- NOTE | 2017-07-25 16:14 | Physician Discharge Referral ---
ExtendedCare Referral Info Transfer To: [facility] Provider in Charge: Radha Talbot CNP Provider in Charge after Transfer: PCP Institutional Level of Care: Skilled - Diagnosis (1) Laceration of head Status: Acute (2) History of DVT (deep vein thrombosis) Status: Acute (3) Abdominal hernia Status: Chronic (4) Abdominal pannus Status: Chronic (5) Venous stasis dermatitis Status: Chronic (6) CAD (coronary artery disease) Status: Chronic (7) Morbid obesity with BMI of 60.0-69.9, adult Status: Chronic (8) Hx of aortic valve replacement, mechanical Status: Chronic (9) Personality disorder Status: Chronic - Transfer Medications Prescriptions: HYDROcodone/Acet 5/325 mg [[place] 5-325 mg] 1 tab PO Q6H PRN #28 tablet PRN Reason: Moderate Pain HYDROcodone/Acet 5/325 mg [[place] 5-325 mg] 2 tab PO Q6H PRN #28 tablet PRN Reason: Pain Home Medications: Atorvastatin Calcium [Lipitor] 40 mg PO HS 06/10/15 [History] Carvedilol [Coreg] 3.125 mg PO BID 06/10/15 [History] Ipratropium/Albuterol Neb [Duoneb] 2.5 mg IH Q6HR PRN 06/10/15 [History] LevETIRAcetam [Keppra] 500 mg PO BID 06/10/15 [History] Melatonin 6 mg PO HS 06/10/15 [History] Sennosides [Senna] 8.6 mg PO HS 06/10/15 [History] Trazodone HCl [TraZODone] 50 mg PO HS 06/10/15 [History] Docusate [Colace] 100 mg PO BID capsule 08/17/15 [Rx] Ascorbate Calcium [Vitamin C] 500 mg PO DAILY 07/22/17 [History] Baclofen [Lioresal] 10 mg PO TID 07/22/17 [History] Ferrous Sulfate 325 mg PO DAILY 07/22/17 [History] Furosemide [Lasix] 60 mg PO DAILY 07/22/17 [History] Multivit-Min/FA/Lycopen/Lutein [Adults 50+ Multivitamin Tablet] 1 tab PO DAILY 07/22/17 [History] Omeprazole [PriLOSEC] 20 mg PO DAILY 07/22/17 [History] Pentoxifylline [TRENtal] 400 mg PO BID 07/22/17 [History] Bisacodyl [Woman's Laxative] 5 mg PO DAILY PRN 07/23/17 [History] Cyclobenzaprine [Flexeril] 10 mg PO TID PRN 07/23/17 [History] Dextromethorphan Polistirex [Delsym] 30 mg PO Q4HR PRN 07/23/17 [History] DiphenhydraMINE [Benadryl] 25 mg PO Q6HR PRN 07/23/17 [History] Guaifenesin [Cough Syrup] 200 mg PO Q4H PRN 07/23/17 [History] Guaifenesin [Mucinex] 600 mg PO Q12HR PRN 07/23/17 [History] HYDROcodone/Acet 5/325 mg [[place] 5-325 mg] 1 tab PO Q6H PRN 07/23/17 [History] OXcarbazepine [Trileptal] 300 mg PO BID 07/23/17 [History] Ondansetron HCl [Zofran] 4 mg PO Q4H PRN 07/23/17 [History] Venlafaxine HCl [Venlafaxine HCl ER] 37.5 mg PO BID 07/23/17 [History] Warfarin [Coumadin] 4 mg PO HS 07/23/17 [History] HYDROcodone/Acet 5/325 mg [[place] 5-325 mg] 1 tab PO Q6H PRN #28 tablet 07/25/17 [Rx] HYDROcodone/Acet 5/325 mg [[place] 5-325 mg] 2 tab PO Q6H PRN #28 tablet 07/25/17 [Rx] Allergies/Adverse Reactions: 3 Allergy/AdvReac Type Severity Reaction Status Date / Time aspirin Allergy Unknown See Verified 01/31/15 06:22 Comments diazepam [From Valium] Allergy Unknown See Verified 01/31/15 06:22 Comments divalproex sodium Allergy Unknown See Verified 01/31/15 06:22 [From Depakote] Comments prochlorperazine Allergy Unknown See Verified 01/31/15 06:22 [From Compazine] Comments - Respiratory Orders None Smoking Cessation: Smoking cessation has been advised. For more information, call the [place] Tobacco Quit Line at 2-655-AALI-NOW. - Advance Directives Code Status: Full Code - Mobility Orders Ambulate - Rehabiliation Orders Rehab Orders: Evaluation for Physical Therapy, Evaluation for Occupational Therapy - Treatments List/Other: Remove scalp miguelina in 7-10 days - Diet Orders No Concentrated Sweets, Cardiac CERTIFICATION: I certify that the transfer of the above named patient to an Extended Care Facility is necessary for the continuing treatment of the diagnosis listed. The above information is true and accurate reflection of patient's current condition. Confidential - Redisclosure prohibited without a patient's written consent.
[2017-07-25] MEDS ORDERED: Aminoglycoside Consult 1 EACH MC ONE (16:59)
== END 2017-07-25 17:00 ==
LOC: 3BNU
PROVIDERS: ADMIT Hospitalist; ATTEND Registered Nurse